=== PATIENT | male | born 1995 | race Hispanic/Latino ===

== ENCOUNTER 2019-10-10 19:01 | Emergency (ER) | payer SELFPAY ==
[~2019-10-10] VITALS: Ht 157.5 cm; Wt 58.5 kg
--- NOTE | 2019-10-10 19:14 | Emergency Department Note ---
History of Present Illnes History of Present Illness History of Present Illness This is a 24 year old male gto sick with COVID 19 on 09/23, tested for COVID 09/30/19, doing better now, no cough, no feer no SOB, still feels congested here wants a chest Xray to see how his chest looks like. . Historian: Patient Arrival Mode: Car Onset (how long ago): week(s) Radiation: Reports non-radiation Severity: mild Duration (how long): week(s) Progression: improving Context: Reports recent illness Relieving factors: none Exacerbating factors: none Treatments prior to arrival: none Past Medical/Family History Physician Review I have reviewed the patient's past medical and family history. Any updates have been documented here. Past Medical History Recent Fever: No Clinical Suspicion of Infectio: No New/Unexplained Change in Ment: No Past Medical History: None Past Surgical History: None Social History Smoking Cessation: Never Smoker Counseling Performed: No Any Illegal Drug Use: No TB Exposure/Symptoms: No Review of Systems Review of Systems Constitutional: Reports no symptoms EENTM: Reports no symptoms Cardiovascular: Reports no symptoms Respiratory: Reports no symptoms Gastrointestinal: Reports no symptoms Genitourinary: Reports no symptoms Musculoskeletal: Reports no symptoms Integumentary: Reports no symptoms Neurological: Reports no symptoms Psychological: Reports no symptoms Endocrine: Reports no symptoms Hematological/Lymphatic: Reports no symptoms Physical Exam Related Data Allergies: Coded Allergies: No Known Drug Allergies (Verified Allergy, Unknown, 10/10/19) Vital signs reviewed: Yes Physical Exam CONSTITUTIONAL Constitutional: Present well-developed, Present well-nourished HENT HENT: Present normocephalic, Present atraumatic, Present oropharynx clear/moist, Present nose normal HENT L/R: Present left ext ear normal, Present right ext ear normal EYES Eyes: Reports PERRL, Reports conjunctivae normal NECK Neck: Present ROM normal PULMONARY Pulmonary: Present effort normal, Present breath sounds normal CARDIOVASCULAR Cardiovascular: Present regular rhythm, Present heart sounds normal, Present capillary refill normal, Present normal rate GASTROINTESTINAL Abdominal: Present soft, Present nontender, Present bowel sounds normal GENITOURINARY Genitourinary: Present exam deferred SKIN Skin: Present warm, Present dry MUSCULOSKELETAL Musculoskeletal: Present ROM normal NEUROLOGICAL Neurological: Present alert, Present oriented x 3, Present no gross motor or sensory deficits PSYCHOLOGICAL Psychological: Present mood/affect normal, Present judgement normal Assessment & Plan Medical Decision Making MDM recovering from COVID, no SOB no cough no fever, saturation normal, no chest x ray needed Assessment & Plan Final Impression: (1) COVID-19 virus infection Depart Disposition: HOME, SELF-CARE NOY ROBERSON MD Oct 10, 2019 19:14
[2019-10-10 20:17] VITALS: BP 142/85
== END 2019-10-10 20:17 | disposition home or self-care (01) ==
LOC: FSED 19:45
DX: U07.1 COVID-19 (principal)
CPT/HCPCS: 99282